=== PATIENT | female | born 1960 | race Caucasian/White ===

== ENCOUNTER 2018-12-20 10:09 | Emergency (ER) | payer MEDICAID ==
[~2018-12-20] VITALS: Ht 160 cm; Wt 68.0 kg
[2018-12-20] MEDS ORDERED: ONDANSETRON ODT 4 MG ONE (11:21)
[2018-12-20 11:29] VITALS: BP 156/95
[2018-12-20] MEDS ORDERED: CHOLESTEROL PO (11:29)
[2018-12-20] MEDS ORDERED: BUPR75TA6 PO (11:29)
[2018-12-20] MEDS ORDERED: ONDANSETRON ODT 4 MG PO ONE (11:30)
[2018-12-20 11:33] LABS: BASOPHILS # (AUTO) 0.02 x10^3/uL (0-0.1); BASOPHILS % (AUTO) 0 % (0-1); EOSINOPHILS # (AUTO) 0.08 x10^3/uL (0-0.4); EOSINOPHILS % (AUTO) 1 % (1-7); LYMPHOCYTES # (AUTO) 2.02 x10^3/uL (1-3.4); LYMPHOCYTES % (AUTO) 31 % (22-44); MD NO; MEAN CORPUSCULAR HEMOGLOBIN 30.4 pg (27.0-34.8); MEAN CORPUSCULAR HGB CONC 33.6 g/dL (32.4-35.8); MEAN CORPUSCULAR VOLUME 90.4 fL (80-100); MEAN PLATELET VOLUME 7.9 fL (7.4-10.4); MONOCYTES % (AUTO) 6 % (2-9); NEUTROPHILS # (AUTO) 4.05 x10^3/uL (1.8-6.8); NEUTROPHILS % (AUTO) 62 % (42-75); PLATELET COUNT 248 x10^3/uL (130-400); RED BLOOD COUNT 4.64 x10^6/uL (3.82-5.3); RED CELL DISTRIBUTION WIDTH 13.4 % (9.6-15.2)
[2018-12-20 11:35] LABS: RAPID INFLUENZA A Negative (Negative); RAPID INFLUENZA B Negative (Negative)
[2018-12-20 11:46] LABS: ALBUMIN 3.9 g/dL (3.4-5.0); ANION GAP 5 mmol/L (5-15); CALCIUM 8.8 mg/dL (8.5-10.1); CHLORIDE 111 mmol/L (98-107); CREATININE 0.83 mg/dL (0.55-1.02)
--- NOTE | 2018-12-20 12:49 | NUR ---
Patient/Caregiver given discharge instructions and they have confirmed that they understand the instructions. Patient ambulatory with steady gait.
== END 2018-12-20 12:50 | disposition home or self-care (01) ==
LOC: ED 11:55
DX: J00 Acute nasopharyngitis [common cold] (principal); B97.89 Other viral agents as the cause of diseases classified elsewhere; F17.200 Nicotine dependence, unspecified, uncomplicated; E78.00 Pure hypercholesterolemia, unspecified; K58.9 Irritable bowel syndrome, unspecified
CPT/HCPCS: 36415; 80048; 82040; 85025; 87400; 99283; Q0162

== ENCOUNTER 2019-10-18 16:47 | Emergency (ER) | payer MEDICAID ==
[~2019-10-18] VITALS: Ht 160 cm; Wt 64.2 kg
[~2019-10-18 16:47] MED LIST: BUPR75TA6 PO; CHOLESTEROL PO
[2019-10-18 16:51] VITALS: BP 126/53
--- NOTE | 2019-10-18 17:29 | NUR ---
TAKEN TO THE SHOWER
[2019-10-18] MEDS ORDERED: NYSTATIN/TRIAMCINOLONE OINT 15GM TP ONE (17:30)
[2019-10-18] MEDS ORDERED: NYSTATIN/TRIAMCINOLONE CRM 15GM TP ONE (19:00)
== END 2019-10-18 19:09 | disposition home or self-care (01) ==
LOC: ED 19:03
DX: B37.9 Candidiasis, unspecified (principal); E78.00 Pure hypercholesterolemia, unspecified
CPT/HCPCS: 99283